=== PATIENT | male | born 2000 | race Caucasian/White ===

== ENCOUNTER 2025-03-14 23:53 | Emergency (ER) | payer OTHER, SELFPAY ==
[2025-03-15 00:01] VITALS: BP 167/108; PULSE 98; RESP 16; TEMP 36.4; O2SAT 95; BMI 26.4
--- OUTSIDE RECORDS SUMMARY | 2025-03-15 00:20 | XMS_ITS | Encounter Summary ---
Author Organization [facility] Address [address] [place] [address] Phone Care Team Providers Care Cisco Unified Communications Engineer Name Role Phone Kevin Brumfield MD Primary Care Provider [phone] Reason for Visit * Reason Onset Date Comments Med Refill 12/12/2021 Encounter Details Date Type Department Care Team ([facility] st Contact Info) Description 12/12/2021 Refill [facility] [address] [place] [address] [place] [address] Kevin Brumfield MD [address] [place] [address] [place] [address] Attention deficit hyperactivity disorder (ADHD), combined type Social History Tobacco Use Types Packs/Day Years Used Date Smoking Tobacco: Never Comments:Never Smoker Hunger/Food Answer Date Recorded In the last 12 months, did y ou or your family ever eat less than you felt you should because there wasn't enough money for food? No 11/08/2020 Stable Housing Answer Date Recorded Are you worried that in the next 2 months you may not have stable housing? No 11/08/2020 Transportation Concerns Answer Date Rec orded In the last 12 months, have you or your family ever had to go without healthcare because you didn't have a way to get there? No 11/08/2020 Hazards in Home Answer Date Recorded Think about the place you li ve. Do you have problems with any of the following? Pests (mice or roaches), mold, no/not working smoke detectors, water leaks, no window guards. No 2020 Financing Utilities Answer Date Recorde d In the last 12 months, has t he electric, gas, oil, or water company threatened to shut off your services in your home? Yes 11/08/2020 Safety at Home Answer Date Recorded Are you or your family worried about feeling saf e in your home? No 11/08/2020 Outside Support Answer Date Recorded Do you feel that you need mo re support from other people or programs to help you care for yourself or your family? No 11/08/2020 Understanding Health Concerns Answer Da te Recorded Do you need help understandi ng your or your child's healthcare needs (diagnosis, medications, plan, etc.)? No 11/08/2020 Financing Health Concerns Answer Date R ecorded In the last 12 months, was t here a time when your child needed to see a doctor or get medications or supplies but could not because of cost? No 11/08/2020 Missing School or Work Answer Date Percy rded Did you or your child miss s chool or work because of a health problem that could have been avoided? No 11/08/2020 Sex and Gender Information Value Date Recorded Sex Assigned at Not on file Legal Sex Male 6:34 PM EDT Gender Identity Male 11/08/2020 1:04 PM EDT Sexual Orientation Not on file documented as of this encounter Miscellaneous Notes * Telephone Encounter - Blanche Aguilar MA - 12/12/2021 1:39 PM EDT Last pe 11/08/20 Last follow up 11/10/21 Last filled 11/10/21 Pt overdue for pe. Lm to schedule appt. documented in this encounter Plan of Treatment Not on file documented as of this encounter Visit Diagnoses Diagnosis Attention deficit hyperactivity disorder (ADHD), combined type documented in this encounter Care Teams Cisco Unified Communications Engineer Relationship Specialty Start Date End Date Kevin Brumfield MD [address] [place] [address] [place] [address] PCP - General Pediatrics 06/21/20 documented as of this encounter
--- OUTSIDE RECORDS SUMMARY | 2025-03-15 00:20 | XMS_ITS | Encounter Summary ---
Author Organization [facility] Address [address] [place] [address] Phone Care Team Providers Care Telegraph Messenger Name Role Phone Kevin Brumfield MD Primary Care Provider [phone] Reason for Visit * Reason Comments Med Refill Encounter Details Date Type Department Care Team ([facility] Contact Info) Description 04/17/2021 Refill [facility] [address] [place] [address] [place] [id number] Kevin Brumfield MD [address] [place] [address] [place] [address] Anxiety Social History Tobacco Use Types Packs/Day Years [...] encounter Miscellaneous Notes * Telephone Encounter - Briana Cherry MA - 04/17/2021 8:28 AM EST [facility] 11/08/20 No showed med ck, needs to schedule. documented in this encounter Plan of Treatment Not on file documented as of this encounter Visit Diagnoses Diagnosis Anxiety Anxiety state, unspecified documented in this encounter Care Teams Telegraph Messenger Relationship Specialty Start Date End Date Kevin Brumfield MD [address] [facility] [place] [address] PCP - General Pediatrics 06/21/20 documented as of this encounter
--- OUTSIDE RECORDS SUMMARY | 2025-03-15 00:20 | XMS_ITS | Encounter Summary ---
Author Organization [facility] Address [address] [place] [address] Phone Care Team Providers Care Die Cutter Apprentice Name Role Phone Kevin Brumfield MD Primary Care Provider [phone] Reason for Visit * Reason Comments Med Refill Encounter Details Date Type Department Care Team ([facility] st Contact Info) Description 03/28/2020 Refill [facility] [address] [place] [address] [place] [address] Kevin Brumfield MD [address] [place] [address] [place] [address] Sleep disorder Social History Tobacco Use Types Packs/Day Years Used Date Smoking Tobacco: Never Comments:Never Smoker Hunger/Food Answer Date Recorded No 02/06/2020 Stable Housing Answer Date Recorded No 02/06/2020 Transportation Concerns Answer Date Rec orded No 02/06/2020 Hazards in Home Answer Date Recorded No 03/28/2020 Financing Utilities Answer Date Recorde d No 03/28/2020 Safety at Home Answer Date Recorded No 03/28/2020 Outside Support Answer Date Recorded No 03/28/2020 Understanding Health Concerns Answer Da te Recorded No 03/28/2020 Financing Health Concerns Answer Date R ecorded No 03/28/2020 Missing School or Work Answer Date Percy rded No 03/28/2020 Sex and Gender Information Value Date Recorded Sex Assigned at Not on file Legal Sex Male 6:34 PM EDT Gender Identity Male 11/08/2020 1:04 PM EDT Sexual Orientation Not on file documented as of this encounter Miscellaneous Notes * Telephone Encounter - Rocael Regan MD - 03/28/2020 10:29 AM EST Needs to schedule a follow up visit with Dr. Brumfield concerning sleep in the next month. This was the plan from his last visit 10/12/2019. -TW * Telephone Encounter - Briana Aguirre MA - 03/28/2020 10:26 AM EST [facility] 10/12/[address] Brumfield's absence. documented in this encounter Plan of Treatment Not on file documented as of this encounter Visit Diagnoses Diagnosis Sleep disorder Unspecified sleep disturbance documented in this encounter Care Teams Die Cutter Apprentice Relationship Specialty Start Date End Date Kevin Brumfield MD [address] [place] [address] [place] [address] PCP - General Pediatrics 06/21/20 documented as of this encounter
--- OUTSIDE RECORDS SUMMARY | 2025-03-15 00:20 | XMS_ITS | Encounter Summary ---
Author Organization [facility] Address [address] [place] [address] Phone Care Team Providers Care Instructor Dramatic Arts Name Role Phone Kevin Brumfield MD Primary Care Provider [phone] Encounter Details Date Type Department Care Team (Late st Contact Info) Description 07/15/2015 Conversion Encounter [facility] [address] [place] [address] [place] [address] Social History Tobacco Use Types Packs/Day Years Used Date Smoking Tobacco: Never Assessed Sex and Gender Information Value Date Recorded Sex Assigned at Not on file Legal Sex Male 6:34 PM EDT Gender Identity Male 11/08/2020 1:04 PM EDT Sexual Orientation Not on file documented as of this encounter Plan of Treatment Not on file documented as of this encounter Visit Diagnoses Not on filedocumented in this encounter Care Teams Instructor Dramatic Arts Relationship Specialty Start Date End Date Kevin Brumfield MD [address] [place] [address] [place] [address] PCP - General Pediatrics 06/21/20 documented as of this encounter
--- OUTSIDE RECORDS SUMMARY | 2025-03-15 00:20 | XMS_ITS | Encounter Summary ---
Author Organization [facility] Address [address] [place] [id number] Phone Care Team Providers Care Photographic Equipment Mechanic Name Role Phone Kevin Brumfield MD Primary Care Provider [phone] Reason for Visit * Reason Onset Date Comments Med Refill 10/20/2020 Encounter Details Date Type Department Care Team (Late st Contact Info) Description 10/20/2020 Refill [facility] [address] [place] [address] [place] [address] Kevin Brumfield MD [address] [place] [address] [place] [address] Sleep disorder Social History Tobacco Use Types [...] Telephone Encounter - Briana Cherry MA - 10/21/2020 8:49 AM EDT Pt overdue for wcc. Attempted to call (no release on file to speak w aunt/uncle), also sent mychartmessage to call and schedule wcc. documented in this encounter Plan of Treatment Not on file documented as of this encounter Visit Diagnoses Diagnosis Sleep disorder Unspecified sleep disturbance documented in this encounter Care Teams Photographic Equipment Mechanic Relationship Specialty Start Date End Date Kevin Brumfield MD [facility] [place] [address] PCP - General Pediatrics 06/21/20 documented as of this encounter
--- OUTSIDE RECORDS SUMMARY | 2025-03-15 00:20 | XMS_ITS | Clinical Summary ---
Author Organization [facility] Address [address] [place] [address] Phone Care Team Providers Care Parimutuel Cashier Name Role Phone Kevin Brufmield MD Primary Care Provider [phone] Allergies No known active allergies Medications FLUoxetine 20 MG tabletIndications :Anxiety Take 1 tablet (20 mg total) by mouth once daily at approximately the same time each day. 30 tablet 2 09/30/19 22 Active citalopram 20 MG tabletIndications :Anxiety TAKE 1 TABLET BY MOUTH EVERY DAY IN THE MORNING 30 tablet 10/27/19 22 Active FLUoxetine 20 MG tabletIndications :Anxiety Take 1 tablet (20 mg total) by mouth once daily at approximately the same time each day. 90 tablet 3 11/11/19 22 Active traZODone 50 MG tabletIndications :Sleep disorder Take 1 tablet (50 mg total) by mouth nightly. 90 tablet 3 11/11/19 22 Active lisdexamfetamine (Vyvanse) 70 MG capsuleIndication s:Attention deficit hyperactivity disorder (ADHD), combined type Take 1 capsule (70 mg total) by mouth every morning. 30 capsule 12/14/19 22 Active Active Problems Problem Noted Date Diagnosed Date Tinea versicolor 09/29/2021 Dysthymia 08/08/2018 Anxiety 03/10/2018 Assessment & Plan (11/08/2020 2:48 PM EDT): We have talked about his anxiety before. I have pushed him on the adhd as being the source. But now at 20 with school done and having anxiety issues I think we should confront this as his real challenge. We will start him on medication and have him check in with Dr. Sunshine today. Attention deficit disorder with hyperactivity Overview (03/10/2018): ADHD (314.01) Onset: 08/06/2017 Added by: Blanche Gonzalez Assessment & Plan (06/10/2020 1:37 PM EST): Ethan is doing well with his medicine. He is finishing his work for school. He is looking for a job. Perhaps at [employer]? Discussed employment options. Discussed activity and exercise. Suggested running up and down the stairs, doing push ups and sit ups. Discussed getting [place] driver's license. 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 He is still unsure. 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 All good ideas. Will f/u with him at a [facility] this summer. Immunizations Immunization Administration Dates Next Due DTaP 5 07/28/2007, 4,2002,06/26,2002 HPV Vaccine 9 Valent 08/06/2017,08/03/2016 Hep A, ped/adol 12/27/2011,11/29/2010 Hep B, ped/adol 2002,2002,2002 Hib (PRP-T) 05/28/2003, 3,2002,04/27 IPV 07/28/2007,2002 Influenza, injectable, quadr ivalent, preservative free 07/15/2014 MMR 07/28/2007,02/26/2003 Meningococcal Conj (Menactra) MCV4P 08/08/2018,0 07/15/2014 Pneumococcal Conjugate 05/28/2003,2002,2002,04/27 Tdap 07/15/2014 Varicella 11/29/2010,02/26/2003 Social History Tobacco Use Types Packs/Day Years [...] PM EDT Sexual Orientation Not on file Last Filed Vital Signs Vital Sign Reading Time Taken Comments Blood Pressure 102/60 11/10/2021 2:52 PM EDT Pulse 111 11/10/2021 2:52 PM EDT Temperature 36.1 C (96.9 F) 11/10/2021 2:52 PM EDT Respiratory Rate - - Oxygen Saturation - - Inhaled Oxygen Concentration - - Weight 83.6 kg (184 lb 6.4 oz) 11/10/2021 2:52 P M EDT Height 182.9 cm (6') 11/10/2021 2:52 PM EDT Body Mass Index 25.01 11/10/2021 2:52 PM EDT Plan of Treatment Health Maintenance Due Date Last Done Comments IPV Vaccines (3 of 3 - 4-dos e series) 01/28/2008 07/28/2007, 2002 Men B Vaccine (1 of 2 - Standard) 2018 DTaP,Tdap,and Td Vaccines (7 - Td or Tdap) 07/15/2024 07/15/2014, 07/28/2007, 05/28/2003, Additional history exists Influenza Vaccines (#1) 2024 07/15/2014 COVID-19 Vaccine (3 - 2024-2 6 season) 2025 03/10/2021, 02/14/2021 Hepatitis B Vaccines Completed 2002, 2002, 2002 HIB Vaccines Completed 05/28/2003, 08/11, 2002, Additional history exists Pneumococcal Vaccine Completed 05/28/2003, 2002, 2002, Additional history exists MMR Vaccines Completed 07/28/2007, 02/26/2003 Varicella Vaccines Completed 11/29/2010, 02/26/2003 Hepatitis A Vaccines Completed 12/27/2011, 11/30/19 11 HPV Vaccines Completed 08/06/2017, 08/03/2016 Meningococcal Vaccine Completed 08/08/2018, 015 Care Teams Parimutuel Cashier Relationship Specialty Start Date End Date Kevin Brumfield MD [address] [place] [address] [place] [address] PCP - General Pediatrics 06/21/20
[2025-03-15] MEDS: cefTRIAXone sodium 250 MG, Lidocaine HCl 1 % MPF 0.9 ML IM (01:32)
[2025-03-15 02:00] VITALS: BP 154/85; PULSE 98; RESP 16; TEMP 36.4; O2SAT 95
--- NOTE | 2025-03-15 02:16 | ED.MALEGU ---
HPI - Male Genitourinary General Chief complaint: Urogenital-Male Stated complaint: precaution exposed to STD Time Seen by Provider: 03/15/25 01:06 Source: patient Limitations: no limitations History of Present Illness ED Provider: Kirsty Cedeno PA-C HPI Narrative: 25-year-old male per sense requesting testing for STI and treatment. Patient states his partner tested positive for chlamydia and gonorrhea 1 month ago, hence the reasoning for treatment and testing. The patient denies dysuria, penile discharge, scrotal pain/redness or swelling. Related Data Allergies Allergy/AdvReac Type Severity Reaction Status Date / Time No Known Allergies Allergy Verified 03/15/25 00:05 Review of Systems Review of Systems: Yes all other systems are reviewed and are negative Constitutional: Constitutional: Denies fatigue and Denies fever(s) Gastrointestinal: Gastrointestinal: Denies abdominal pain, Denies nausea and Denies vomiting Genitourinary: Genitourinary: Denies genital lesions, Denies genital pain, Denies dysuria, Denies penile discharge, Denies scrotal swelling and Denies testicular pain Endocrine: Endocrine: Denies fatigue PMFSH Past Medical History Attestation statement: The following information was validated with the patient. Social History Social History Advance Directives: No Advance Directives Information Provided: No Do you have a plan to hurt others: No Plan Physical Exam Vital Signs: Vital Signs: Last Vital Signs Temp 97.6 F 03/15/25 00:01 Pulse 98 03/15/25 00:01 Resp 16 03/15/25 00:01 BP 167/108 H 03/15/25 00:01 Pulse Ox 95 03/15/25 00:01 O2 Del Method Room Air 03/15/25 00:01 BMI result Body Mass Index 26.4 Const: Other: Alert well-appearing Orientation/consciousness: patient oriented x3 Resp: Effort & Inspection: normal respiratory effort Cardio: Other: Normal peripheral perfusion Skin: Other: Warm dry no rash Neuro: General: patient oriented x3, gait normal, no focal motor deficits and CN's II-XI intact bilaterally Psych: Other: Cooperative Medications Administered Discontinued Medications Generic Name Dose Route Start Last Admin Trade Name Freq PRN Reason Stop Dose Admin Azithromycin 1,000 mg 03/15/25 01:11 03/15/25 01:32 Azithromycin 500 Mg Tablet PO 03/15/25 01:12 1,000 mg ONCE ONE Administration Ceftriaxone Sodium 250 mg/ 0 mg 03/15/25 01:11 03/15/25 01:32 Lidocaine HCl 0.9 ml IM 03/15/25 01:12 250 kit ONCE ONE Administration Ondansetron HCl 8 mg 03/15/25 01:11 03/15/25 01:32 Ondansetron Odt 8 Mg Tab.Anndis TRANSLINGU 03/15/25 01:12 8 mg ONCE ONE Administration Medical Decision Making Medical Decision Making MDM Narrative: 25-year-old male per sense requesting testing for STI and treatment. Patient states his partner tested positive for chlamydia and gonorrhea 1 month ago, hence the reasoning for treatment and testing. The patient denies dysuria, penile discharge, scrotal pain/redness or swelling. Problem: Exposure to STD History: Per patient I have considered the following differential diagnoses: Urethritis, epididymitis, orchitis Plan: CT NG obtained, the patient can access results on the portal as labile not result overnight, he has been treated with ceftriaxone and azithromycin. He is currently asymptomatic. Differential Diagnosis Differential Diagnoses: The differential diagnosis associated with the presentation includes See medical decision-making Admission/Observation Consideration of admission/observation: Escalation of care including admission/observation considered Not applicable Lab Data [facility] Lab Attestation statement: I reviewed the patient's lab results. Pending Discharge Plan Discharge Clinical Impression: Exposure to STD Patient Disposition: Home, Self-Care Instructions: PEP (Postexposure Prophylaxis) (ED) Additional Instructions: You have testing for gonorrhea and chlamydia pending, you can access your patient portal for results, these lab studies we will not return overnight. You have been empirically treated for both organisms. You should abstain from sexual contact with anyone until you received results. Print Language: Hungarian
[2025-03-15 02:28] VITALS: BP 154/85; PULSE 98; RESP 16; TEMP 36.4; O2SAT 95
[2025-03-15 03:14] LABS: CT PCR Urine NOT DETECTED (Not Detect.); NG PCR Urine NOT DETECTED (Not Detect.)
== END 2025-03-15 02:29 | disposition home or self-care (01) ==
PROVIDERS: Physician Assistant Medical; Emergency Provider Emergency Medicine
DX: Z20.2 Contact with and (suspected) exposure to infections with a predominantly sexual mode of transmission (principal)
CPT/HCPCS: 87491; 87591; 96372; 99284; J0696; J2003